=== PATIENT | male | born 1975 | race Caucasian/White ===

== ENCOUNTER 2019-01-19 11:12 | Emergency (ER) | payer SELFPAY | END 2019-01-19 12:49 | disposition home or self-care (01) | DX: N34.2 Other urethritis (principal); K40.90 Unilateral inguinal hernia, without obstruction or gangrene, not specified as recurrent; Z90.89 Acquired absence of other organs ==

== ENCOUNTER 2025-03-06 13:23 | Emergency (ER) | payer MEDICAID ==
[~2025-03-06] VITALS: Ht 172.7 cm; Wt 63.5 kg
[2025-03-06 13:45] VITALS: TEMP 98.3
[2025-03-06] MEDS ORDERED: KETOROLAC TROMETHAMINE 15 MG/ML VIAL ONE (15:13)
[2025-03-06] MEDS: KETOROLAC TROMETHAMINE 15 MG/ML VIAL IV ONE (15:23)
[2025-03-06] MEDS ORDERED: ACETAMINOPHEN ES 500 MG TABLET ONE (15:43)
[2025-03-06] MEDS ORDERED: FAMOTIDINE/PF INJ 20 MG/2 ML VIAL IV ONE (15:43)
[2025-03-06] MEDS: ACETAMINOPHEN ES 500 MG TABLET PO ONE (15:45)
[2025-03-06] MEDS: FAMOTIDINE/PF INJ 20 MG/2 ML VIAL IV ONE (15:45)
[2025-03-06 15:54] LABS: PLATELET COUNT (AUTO) 249 K/uL (150-450); RED BLOOD CELL COUNT(AUTO) 5.38 MIL/uL (4.5-6.0); RED CELL DISTRIBUTION WIDTH 13.4 % (11.5-15.0); WHITE BLOOD COUNT (AUTO) 6.3 K/uL (4.3-11.0)
[2025-03-06 16:04] LABS: CALCIUM, SERUM 9.6 mg/dL (8.5-10.1); CREATININE 1.0 mg/dL (0.6-1.3); SODIUM SERUM 138.0 mmol/L (136-145); UREA NITROGEN, BLOOD 15.0 mg/dL (7-18)
[2025-03-06 16:11] LABS: ASPARTATE AMINOTRANSFERASE 25.0 U/L (15-37); TOTAL PROTEIN, SERUM 8.1 g/dL (6.4-8.2)
[2025-03-06] MEDS ORDERED: IBUP-1953 PO (17:14)
[2025-03-06 17:26] VITALS: BP 120/78; O2SAT 98
[2025-03-06 17:54] LABS: APPEARANCE,URINE CLEAR (CLEAR); BLOOD, URINE TRACE-INTA Ery/uL (NEGATIVE); LEUKOCYTE ESTERASE ,URINE NEGATIVE (NEGATIVE); NITRITE, URINE NEGATIVE (NEGATIVE); UGLUCOSE NEGATIVE (NEGATIVE)
[2025-03-06 18:06] LABS: ADD URINE CULTURE YES; SQUAMOUS EPITHELIAL CELL,UR Few /HPF (None Seen)
== END 2025-03-06 17:17 | disposition home or self-care (01) ==
LOC: ER 13:31
DX: R10.32 Left lower quadrant pain (principal); K59.00 Constipation, unspecified; Z90.49 Acquired absence of other specified parts of digestive tract
CPT/HCPCS: 99285; 96374; 76705; 96375; 85025; 80048; 87086; 83690; 80076; 81001; 36415; J1885; J1308